=== PATIENT | male | born 1965 | race Caucasian/White ===

== ENCOUNTER 2021-08-07 11:45 | Emergency (ER) | payer BC ==
[~2021-08-07] VITALS: Ht 180.3 cm; Wt 127.0 kg
[~2021-08-07 11:45] MED LIST: GARL10002 PO; LISI20TA18 PO; MULT-208 PO; PRAV20TA2 PO; SIMV20TA18 PO
[2021-08-07 11:50] VITALS: BP 139/73
[2021-08-07] MEDS ORDERED: LIDOCAINE 1% Multi-Dose 20 ML VIAL. INJ ONE (13:00)
[2021-08-07] MEDS ORDERED: DIPHTH,PERTUSS(ACELL),TET TOX 0.5 ML DISP.SYRIN. VAX IM ONE ×2 (13:00→13:04)
--- NOTE | 2021-08-07 13:02 | PHYS DOC ---
Past Medical History Past Medical History: No Pertinent History Past Surgical History: No Surgical History, Tonsillectomy Smoking Status: Former Smoker Additional Information: FORMER SMOKER, CHEWS TOBACCO Alcohol Use: Occasionally General Adult EDM: Chief Complaint: LACERATION/AVULSION HPI: HPI: Patient is a 56-year-old male that presents today with a left index finger injury patient states he was laying laminate fidelina, and hit his finger with a mallet that he was using to lay down fidelina. He said that the tip of his finger was caught in the mallet on a block that he was using and he sustained an injury. No uncontrolled bleeding at this time. 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 Patient and able to state when his last tetanus shot was. Review of Systems: Review of Systems: Constitutional: Denies fever or chills. [] Eyes: Denies change in visual acuity. [] HENT: Denies nasal congestion or sore throat. [] Respiratory: Denies cough or shortness of breath. [] Cardiovascular: Denies chest pain or edema. [] GI: Denies abdominal pain, nausea, vomiting, bloody stools or diarrhea. [] : Denies dysuria. [] Musculoskeletal: Left index finger pain Integument: Denies rash. [] Neurologic: Denies headache, focal weakness or sensory changes. [] Endocrine: Denies polyuria or polydipsia. [] Lymphatic: Denies swollen glands. [] Psychiatric: Denies depression or anxiety. [] Heart Score: C/O Chest Pain: N/A Risk Factors: Risk Factors: DM, Current or recent (<one month) smoker, HTN, HLP, family history of CAD, obesity. Risk Scores: Score 0 - 3: 2.5% MACE over next 6 weeks - Discharge Home Score 4 - 6: 20.3% MACE over next 6 weeks - Admit for Clinical Observation Score 7 - 10: 72.7% MACE over next 6 weeks - Early Invasive Strategies Current Medications: Current Medications Medications (Trade) Dose Ordered Sig/Abel Start Time Stop Time Status Last Admin Dose Admin Diphtheria/ Tetanus/Acell Pertussis (Boostrix) 0.5 ml ONCE ONCE 08/07/21 13:00 08/07/21 13:01 UNV Lidocaine HCl (Lidocaine 1% 20ml Vial) 20 ml 1X ONCE 08/07/21 13:00 08/07/21 13:01 UNV Allergies: Allergies: Allergies Coded Allergies Type Severity Reaction Last Updated Verified No Known Drug Allergies 07/13/16 No Physical Exam: PE: Constitutional: Well developed, well nourished, no acute distress, non-toxic appearance. [] HENT: Normocephalic, atraumatic, bilateral external ears normal, oropharynx moist, no oral exudates, nose normal. [] Eyes: PERRLA, EOMI, conjunctiva normal, no discharge. [] Neck: Normal range of motion, no tenderness, supple, no stridor. [] Cardiovascular:Heart rate regular rhythm, no murmur [] Lungs & Thorax: Bilateral breath sounds clear to auscultation [] Abdomen: Bowel sounds normal, soft, no tenderness, no masses, no pulsatile masses. [] Skin: Warm, dry, no erythema, no rash. [] Back: No tenderness, no CVA tenderness. [] Extremities: No tenderness, no cyanosis, no clubbing, ROM intact, no edema. [] Neurologic: Alert and oriented X 3, normal motor function, normal sensory function, no focal deficits noted. [] Psychologic: Affect normal, judgement normal, mood normal. [] Current Patient Data: Vital Signs: Vital Signs Date Time Temp Pulse Resp B/P (MAP) Pulse Ox O2 Delivery O2 Flow Rate FiO2 08/07/21 11:50 98.0 60 16 139/73 (95) 96 Room Air 98.0 EKG: EKG: [] Radiology/Procedures: Radiology/Procedures: [Indication: U-shaped laceration left index finger Procedure: Patient was placed in a sitting position digital block performed earlier provided anesthetizing measures to the tip of the finger. Area was cleansed with Betadine solution irrigated with approximately 100 mL of normal saline. 7 interrupted sutures using 4-0 Ethilon was used to close the wound. Total repaired wound length: 2 cm [TOTAL REPAIR LENGTH]. The patient tolerated the procedure well Course & Med Decision Making: Course & Med Decision Making Pertinent Labs and Imaging studies reviewed. (See chart for details) 1315 patient was placed in a sitting position and a digital block was performed on the left index finger. Finger was cleansed with Betadine solution, lidocaine 1% 5 mL was instilled into the proximal finger . Sutures placed. Patient has been advised to clean wound twice daily with mild soap and water. Watching for any signs and symptoms of infection. Dressing was placed with tube gauze to the injured finger. Patient and family was informed that no laceration was noted of the finger. Patient can return here or follow-up with her primary care physician to have the sutures removed in 7 to 10 days. Dragon Disclaimer: Dragon Disclaimer: This electronic medical record was generated, in whole or in part, using a voice recognition dictation system. Departure Departure Impression: Primary Impression: Laceration of finger Qualified Codes: S61.211A - Laceration without foreign body of left index finger without damage to nail, initial encounter Disposition: HOME / SELF CARE / HOMELESS Condition: STABLE Referrals: ELIJAH HARRIS MD (PCP) Patient Instructions: Fingertip Laceration Additional Instructions: Keep wound clean and dry, okay to bathe but do not submerge the wound. Clean the wound twice daily with mild soap and water patting it dry. Watch for any signs and symptoms of infection which may include redness, drainage, swelling, increased warmth in the area or drainage. Return here to the emergency department or follow-up with your primary care physician to have the sutures removed in 7 to 10 days. May take Tylenol and/or ibuprofen as needed for pain FREDY YANG APRN Aug 07, 2021 13:02
[2021-08-07] MEDS ORDERED: LIDOCAINE 1% Multi-Dose 20 ML VIAL. ONE (13:04)
--- NOTE | 2021-08-07 13:34 | RAD ---
XR FINGER(S)_LEFT 2+VIEWS_RT DATE: 08/07/2021 1:23 PM INDICATION: Pain, HIT WITH HAMMER COMPARISON: None. FINDINGS: Bones: Acute nondisplaced fracture of the second distal phalanx distal tuft. Chronic ulnar styloid fr acture. Joints: The joint spaces are normal. Miscellaneous: None. IMPRESSION: Acute nondisplaced fracture of the second distal phalanx distal tuft. Electronically signed by: Eliezer Whitehead MD (08/07/2021 1:31 PM) [id number]
== END 2021-08-07 14:27 | disposition home or self-care (01) ==
LOC: ER 11:45
DX: S61.211A Laceration without foreign body of left index finger without damage to nail, initial encounter (principal); W26.8XXA Contact with other sharp object(s), not elsewhere classified, initial encounter; Y93.89 Activity, other specified; Y92.89 Other specified places as the place of occurrence of the external cause; Y99.8 Other external cause status
CPT/HCPCS: 12001; 73140; 90471; 90715; 99283; J3490